=== PATIENT | female | born 1975 | race Caucasian/White ===

== ENCOUNTER 2021-04-04 13:18 | Emergency (ER) | payer SELFPAY ==
[~2021-04-04] VITALS: Ht 167.6 cm; Wt 81.8 kg
[2021-04-04] MEDS ORDERED: IV NORMAL SALINE 1000ML BAG 1,000 ML IV SCH (16:00)
--- NOTE | 2021-04-04 16:08 | PHYS DOC ---
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 She states she is on her third antibiotic and she is been going to [facility] urgent [facility]. She states that last week they CT scan her abdomen pelvis and it didn't show much but they scanned her again last night when she went and it showed her having a hernia and they wanted to do emergency surgery on her. She stated that she told them that she could not have emergency surgery last night. She states that she took a stool softener and had a large bowel movement this morning. She denies any abdominal pain, nausea, vomiting, diarrhea, fever, chest pain, cough. She states she has had some back pain. She states she is on her third antibiotic that they just started her on which is Cefdinir. Patient states she is here so she can have surgery. She states she is just having pressure type pain in her abdomen. She rates her pressure at an 8 out of 10. 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 [] Eyes: Denies change in visual acuity. [] HENT: Denies nasal congestion or sore throat. [] Respiratory: Denies cough or shortness of breath. [] Cardiovascular: Denies chest pain or edema. [] GI: Denies abdominal pain, nausea, vomiting, bloody stools or diarrhea. + Abdominal pressure [] : Denies dysuria. [] Musculoskeletal: Denies back pain or joint pain. [] Integument: Denies rash. [] Neurologic: Denies headache, focal weakness or sensory changes. [] Endocrine: Denies polyuria or polydipsia. [] Lymphatic: Denies swollen glands. [] Psychiatric: Denies depression or anxiety. 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 Risk Scores: Score 0 - 3: 2.5% MACE over next 6 weeks - Discharge Home Score 4 - 6: 20.3% MACE over next 6 weeks - Admit for Clinical Observation Score 7 - 10: 72.7% MACE over next 6 weeks - Early Invasive Strategies ([facility]) Current Medications: Current Medications Medications (Trade) Dose Ordered Sig/Titus Start Time Stop Time Status Last Admin Dose Admin Sodium Chloride 1,000 ml @ 1,000 mls/hr Q1H 04/04/21 16:00 04/04/21 16:59 UNV ([facility]) Allergies: Allergies: Allergies Coded Allergies Type Severity Reaction Last Updated Verified chlorpheniramine Allergy Unknown 04/04/21 Yes hydrocodone Allergy Unknown 04/04/21 Yes ([facility]) Physical Exam: PE: Constitutional: Well developed, well nourished, no acute distress, non-toxic appearance. [] HENT: Normocephalic, atraumatic, bilateral external ears normal, oropharynx moist, no oral exudates, nose normal. [] Eyes: PERRLA, EOMI, conjunctiva normal, no discharge. [] Neck: Normal range of motion, no tenderness, supple, no stridor. [] Cardiovascular:Heart rate regular rhythm, no murmur [] Lungs & Thorax: Bilateral breath sounds clear to auscultation [] Abdomen: Bowel sounds normal, soft, no tenderness, no masses, no pulsatile masses. [] Skin: Warm, dry, no erythema, no rash. [] Back: No tenderness, no CVA tenderness. [] Extremities: No tenderness, no cyanosis, no clubbing, ROM intact, no edema. [] Neurologic: Alert and oriented X 3, normal motor function, normal sensory function, no focal deficits noted. [] Psychologic: Affect normal, judgement normal, mood normal. [] Normal physical exam ([facility]) Current Patient Data: Vital Signs: Vital Signs Date Time Temp Pulse Resp B/P (MAP) Pulse Ox O2 Delivery O2 Flow Rate FiO2 04/04/21 15:30 98.1 87 16 116/75 98 Room Air 98.1 (SUSY ROMERO APRN) EKG: EKG: [] (SUSY ROMERO APRN) Radiology/Procedures: Radiology/Procedures: [] Impression: [facility] [address] [place] [address] IMAGING REPORT Signed PATIENT: REYNALDO FRANCOIS ACCOUNT: [id number] : 1975 LOCATION: ER AGE: 46 SEX: F EXAM STATUS: REG ER ORD. PHYSICIAN: SUSY ROMERO APRN REASON: abdominal pain-NO, patient in for UTI and kidneys PROCEDURE: ACUTE ABDOMEN SERIES EXAM: Abdomen series, 3 views. HISTORY: Pain. COMPARISON: None. FINDINGS: A frontal view of the chest and frontal upright and supine views of the abdomen are obtained. There is no infiltrate, pleural effusion or pneumothorax. The heart is normal in size. There are nonspecific air-filled loops of bowel throughout the abdomen. There is stool within the proximal colon. There is no evidence of bowel obstruction. There is no free air. There are cholecystectomy clips. There is lumbar scoliosis. IMPRESSION: 1. No obstructive bowel gas pattern. 2. No acute pulmonary finding. Electronically signed by: Eugenia Victor MD (04/04/2021 5:09 PM) [id number] DICTATED and SIGNED BY: EUGENIA VICTOR MD DATE: 04/04/21 [id number] [place] [address] IMAGING REPORT Signed PATIENT: REYNALDO FRANCOIS ACCOUNT: [id number] : 1975 LOCATION: ER AGE: 46 SEX: F EXAM STATUS: REG ER ORD. PHYSICIAN: SUSY ROMERO APRN REASON: ABDOMINAL PAIN PROCEDURE: CT ABD PELV W/ IV CONTRST ONLY CT ABDOMEN+PELVIS W History: ABDOMINAL PAIN Comparison: None. Technique: After administration of intravenous contrast, helical CT of the abdomen and pelvis was performed from the lung bases through the ischial tuberosities. Coronal and sagittal reconstructions were obtained. 75 mL of Omnipaque 300 were used. One or more of the following dose reduction techniques were utilized: Automated exposure control (AEC), Adjustment of mA and/or kV according to patient size, Use of iterative reconstruction technique such as ASiR, CT scan done according to ALARA and image gently/image wisely Abdomen Findings: The visualized lung bases are clear. Small hiatal hernia. There are a couple of hepatic hypodensities which are difficult to characterize but likely represent cysts or hemangiomas. Cholecystectomy. The pancreas, spleen, and bilateral adrenal glands are normal. Symmetric renal enhancement. Right renal nonobstructive 5 mm calculus.. There is no hydronephrosis. The visualized loops of small bowel are normal. The visualized loops of large bowel are normal. There is no evidence of bowel obstruction. Appendix is normal. There is no free fluid. There is no mesenteric or retroperitoneal adenopathy. The abdominal aorta is normal in caliber. Pelvis Findings: Urinary bladder is normal. Uterus is present. No pelvic free fluid. There is no pelvic or inguinal adenopathy. Degenerative changes of the spine. Left convex lower lumbar curvature. IMPRESSION: No acute findings. Electronically signed by: Tierra Fuller MD (04/04/2021 6:02 PM) [facility] DICTATED and SIGNED BY: TIERRA FULLER MD DATE: 04/04/21 [id number] (SUSY ROMERO APRN) Course & Med Decision Making: Course & Med Decision Making Pertinent Labs and Imaging studies reviewed. (See chart for details) See HPI. Alert and oriented x4. Speaks in full clear sentences. Skin pink warm and dry. Ambulatory with a steady gait. Abdomen is soft and nontender. There are no hard hernias or lumps felt. She is not vomiting. She states she had a protein shake at 10 AM this morning. She states that the last thing she ate or drink was this morning At 10 AM. Bilateral CVA tenderness. Afebrile. Vital signs within normal limits. CT abdomen pelvis and acute abdominal series is normal. We did send off for [facility]' records but they still have not sent them. Blood work is unremarkable. Patient is stable and in no distress. Patient is discharged home and follow-up with primary care provider. [] (SUSY ROMERO APRN) Course & Med Decision Making I have reviewed and agree with all pertinent clinical information above including history, exam, and recommendations. Fatou Zuñiga DO (FATOU ZUÑIGA DO) Bola Disclaimer: Bola Disclaimer: This electronic medical record was generated, in whole or in part, using a voice recognition dictation system. (SUSY ROMERO APRN) Departure Departure Impression: Primary Impression: Abdominal discomfort Disposition: HOME / SELF CARE / HOMELESS Condition: STABLE Referrals: FELI PORTILLO (PCP) Patient Instructions: Abdominal Pain (Nonspecific) Additional Instructions: Follow-up with your primary care provider soon as possible. Drink plenty of fluids. Finish your antibiotic and then follow-up with your primary care provider too have a repeat urinalysis done. SUSY ROMERO APRN Apr 04, 2021 16:08 FATOU ZUÑIGA DO Apr 04, 2021 18:28
[2021-04-04 16:33] LABS: BASO # 0.1 x10^3/uL (0.0-0.2); BASO % 1 % (0-3); EOS # 0.1 x10^3/uL (0.0-0.7); EOS % 2 % (0-3); HEMOGLOBIN 12.5 g/dL (12.0-15.5); LYMPH # 2.4 x10^3/uL (1.0-4.8); LYMPH % 34 % (24-48); MEAN CORPUSCULAR HEMOGLOBIN 29 pg (25-35); MEAN CORPUSCULAR HGB CONC 34 g/dL (31-37); MEAN CORPUSCULAR VOLUME 87 fL (79-100); MONO # 0.5 x10^3/uL (0.0-1.1); MONO % 7 % (0-9); NEUT # 3.9 x10^3/uL (1.8-7.7); NEUT % 56 % (31-73); PLATELET COUNT 251 x10^3/uL (140-400); RED BLOOD COUNT 4.25 x10^6/uL (3.50-5.40)
[2021-04-04 16:41] LABS: BILIRUBIN,URINE NEGATIVE (NEG); CLARITY,URINE CLEAR; COLOR,URINE YELLOW; NITRITE,URINE NEGATIVE (NEG); PH,URINE 5.5 (<5.0-8.0); PROTEIN,URINE NEGATIVE (NEG-TRACE); UROBILINOGEN,URINE 0.2 mg/dL (0.2 mg/dL)
[2021-04-04 16:46] LABS: CALCIUM 8.7 mg/dL (8.5-10.1); CREATININE 0.9 mg/dL (0.6-1.0); GFR 67.4; POTASSIUM 4.1 mmol/L (3.5-5.1)
[2021-04-04 16:51] LABS: BACTERIA,URINE 0 /HPF (0-FEW); RBC,URINE OCC /HPF (0-2)
[2021-04-04 16:53] LABS: ALBUMIN 3.2 g/dL (3.4-5.0); ALBUMIN/GLOBULIN RATIO 0.9 (1.0-1.7); TOTAL BILIRUBIN 0.4 mg/dL (0.2-1.0); TOTAL PROTEIN 6.7 g/dL (6.4-8.2)
--- NOTE | 2021-04-04 17:12 | RAD ---
EXAM: Abdomen series, 3 views. HISTORY: Pain. COMPARISON: None. FINDINGS: A frontal view of the chest and frontal upright and supine views of the abdomen are obtaine d. There is no infiltrate, pleural effusion or pneumothorax. The heart is normal in size. There are n onspecific air-filled loops of bowel throughout the abdomen. There is stool within the proximal colon . There is no evidence of bowel obstruction. There is no free air. There are cholecystectomy clips. T here is lumbar scoliosis. IMPRESSION: 1. No obstructive bowel gas pattern. 2. No acute pulmonary finding. Electronically signed by: Eugenia Lo MD (04/04/2021 5:09 PM) [id number]
[2021-04-04] MEDS ORDERED: CONTRAST GIVEN. MC PRN (17:30)
[2021-04-04] MEDS ORDERED: IOHEXOL 300 MG/ML 100ML VIAL. IV ONE (17:30)
--- NOTE | 2021-04-04 18:04 | RAD ---
CT ABDOMEN+PELVIS W History: ABDOMINAL PAIN Comparison: None. Technique: After administration of intravenous contrast, helical CT of the abdomen and pelvis was per formed from the lung bases through the ischial tuberosities. Coronal and sagittal reconstructions wer e obtained. 75 mL of Omnipaque 300 were used. One or more of the following dose reduction techniques were utilized: Automated exposure control (AEC), Adjustment of mA and/or kV according to patient size , Use of iterative reconstruction technique such as ASiR, CT scan done according to ALARA and image g ently/image wisely Abdomen Findings: The visualized lung bases are clear. Small hiatal hernia. There are a couple of hepatic hypodensities which are difficult to characterize but likely represent cysts or hemangiomas. Cholecystectomy. The pancreas, spleen, and bilateral adrenal glands are normal. Symmetric renal enhancement. Right renal nonobstructive 5 mm calculus.. There is no hydronephrosis. The visualized loops of small bowel are normal. The visualized loops of large bowel are normal. There is no evidence of bowel obstruction. Appendix is normal. There is no free fluid. There is no mesenteric or retroperitoneal adenopathy. The abdominal aorta is normal in caliber. Pelvis Findings: Urinary bladder is normal. Uterus is present. No pelvic free fluid. There is no pelvic or inguinal ad enopathy. Degenerative changes of the spine. Left convex lower lumbar curvature. IMPRESSION: No acute findings. Electronically signed by: Tacho Fuller MD (04/04/2021 6:02 PM) [id number]
[2021-04-04 18:13] VITALS: BP 114/72
== END 2021-04-04 18:40 | disposition home or self-care (01) ==
LOC: ER 13:18
DX: R10.9 Unspecified abdominal pain (principal); N20.0 Calculus of kidney; K44.9 Diaphragmatic hernia without obstruction or gangrene
CPT/HCPCS: 36415; 74022; 74177; 80053; 81001; 81025; 85025; 87086; 96360; 99285; J7030; Q9967; 96374